=== PATIENT | male | born 1990 | race American Indian/Alaskan Native ===

== ENCOUNTER 2019-02-10 12:56 | Emergency (ER) | payer SELFPAY ==
[2019-02-10 13:10] VITALS: BP 103/58
--- NOTE | 2019-02-10 13:11 | Event Note ---
ED Screening Note Date of service: 02/10/19 Time: 13:09 ED Screening Note: This is a 28 y.o. M. that presents to the ER with right eye pain x 1 week. Reports pain worse with light. Wear contacts This initial assessment/diagnostic orders/clinical plan/treatment(s) is/are subject to change based on patients health status, clinical progression and re- assessment by fellow clinical providers in the ED. Further treatment and workup at subsequent clinical providers discretion. Patient/guardian urged not to elope from the ED as their condition may be serious if not clinically assessed and managed. Initial orders include:
[2019-02-10] MEDS ORDERED: TETRACAINE 0.5% OPHTH SOLN 4ML OU ONE (13:22)
[2019-02-10] MEDS ORDERED: FLUORESCEIN 1 MG STRIP OP ONE (13:22)
--- NOTE | 2019-02-10 13:27 | Emergency Department Report ---
Eye Injury/Foreign Body - HPI Duration: 2 Days Eye Location: Right Severity: Mild Tetanus Status: Up to Date Eye Symptoms: Eye Pain: No, Blurred Vision: No, Eye Redness: Yes, Grinding/Hammering Metal: No, Used Eye Protection: No, Contact Lens Use: Yes, Recalls Injury: No, Photophobia: No Other History: 28 YO MALE COMES TO ER WITH R EYE IRRITATION, SENSTIVE TO LIGHT, AND TEARING. PT THINKS HE GOT A DOG HAIR IN IT. PT WEARS CONTACTS ED Review of Systems ROS: Stated complaint: SCRATCH EYE Other details as noted in HPI Comment: All other systems reviewed and negative ED Past Medical Hx - Past Medical History Previous Medical History?: Yes Hx HIV: Yes - Surgical History Past Surgical History?: No - Family History Family history: no significant - Social History Smoking Status: Never Smoker Substance Use Type: Marijuana - Medications Home Medications: Home Medications Medication Instructions Recorded Confirmed Last Taken Type Tobramycin/Dexamethasone [Tobradex 1 - 2 drop OD Q4HR #1 drops.susp 02/10/19 Unknown Rx Eye Drops 0.3/0.1%] Eye Injury Exam - Exam General: Vital signs noted. No distress. Alert and acting appropriately. ALERT ORIENTED S1S2 LUNGS CTA INC UPTAKE FLUROS. AT 4P OF THE RIGHT CORNEA NO FB CONJUNCTIVA R EYE RED EOMS INTACT GLOBE INTACT POS PHOTOPHOBIA PAIN RELIEVED WITH TETRACAINE ED Course Vital Signs 02/10/19 13:07 Temperature 98.6 F Pulse Rate 91 H Respiratory 18 Rate Blood Pressure 103/58 O2 Sat by Pulse 99 Oximetry ED Medical Decision Making - Medical Decision Making NO FEVER NO RECENT URI STATES THE R EYE STARTED HURTING P PLAYING W HIS DOG POS INC UPTAKE FLURO. R EYE AT 4 OCLOCK NO DISCHARGE/ NO MATTING Vital Signs 02/10/19 13:07 Temperature 98.6 F Pulse Rate 91 H Respiratory 18 Rate Blood Pressure 103/58 O2 Sat by Pulse 99 Oximetry - Differential Diagnosis CORNEAL ABRASION/IRITIS/CONJUNC. Critical care attestation.: If time is entered above; I have spent that time in minutes in the direct care of this critically ill patient, excluding procedure time. ED Disposition Clinical Impression: Corneal abrasion Disposition: DC-01 TO HOME OR SELFCARE Is pt being admited?: No Does the pt Need Aspirin: No Condition: Stable Additional Instructions: FOLLOW UP WITH EYE DOCTOR IF PERSISTS MEDS ORDERED DO NOT RUB EYES THROW YOUR CURRENT CONTACTS AWAY- THEY CAN HARBOR BACTERIA DO NOT WEAR CONTACTS FOR 1 WEEK Prescriptions: Tobramycin/Dexamethasone [Tobradex Eye Drops 0.3/0.1%] 1 - 2 drop OD Q4HR #1 drops.susp Referrals: MANUELA LEARY MD [Staff Physician] - 3-5 Days Time of Disposition: 13:25
== END 2019-02-10 13:47 | disposition home or self-care (01) ==
LOC: ED 12:56
DX: S05.01XA Injury of conjunctiva and corneal abrasion without foreign body, right eye, initial encounter (principal); X58.XXXA Exposure to other specified factors, initial encounter; Y93.89 Activity, other specified; Y92.89 Other specified places as the place of occurrence of the external cause; Y99.8 Other external cause status

== ENCOUNTER 2019-02-19 17:10 | Emergency (ER) | payer SELFPAY ==
--- NOTE | 2019-02-19 18:19 | Event Note ---
ED Screening Note ED Screening Note: states he was here last week PMHx HIV This initial assessment/diagnostic orders/clinical plan/treatment(s) is/are subject to change based on patients health status, clinical progression and re- assessment by fellow clinical providers in the ED. Further treatment and workup at subsequent clinical providers discretion. Patient/guardian urged not to elope from the ED as their condition may be serious if not clinically assessed and managed. Initial orders include:
[2019-02-19 18:20] VITALS: BP 94/54
--- NOTE | 2019-02-19 18:26 | Emergency Department Report ---
ED Eye Problem HPI - General Chief complaint: Eye Problems Stated complaint: RT EYE/MUSCLE PAIN Time Seen by Provider: 02/19/19 18:18 Source: patient Mode of arrival: Ambulatory Limitations: No Limitations - History of Present Illness Initial comments: pt is a 28 yo male who presents to the ED with c/o right eye pain and redness that began a 02/10/19. pt was evaluated in the ED at that time and was diagnosed with a corneal abrasion and given abx eye drops. he states he did not follow up with the eyeglass fitter. he states he has continued to have eye redness and watery eye drainage. he does not report any vision changes. pt states that he also has had occasional muscle spasms at night in the left thigh. he denies any leg swelling or pain in the leg. 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 - Related Data Previous Rx's Medication Instructions Recorded Last Taken Type Tobramycin/Dexamethasone [Tobradex 1 - 2 drop OD Q4HR #1 drops.susp 02/10/19 Unknown Rx Eye Drops 0.3/0.1%] Erythromycin [Erythromycin Ophth 1 applic OD QID 7 Days #1 tube 02/19/19 Unknown Rx Oint] Ketorolac Tromethamine [Acular 1 drop OD QID PRN #1 bottle 02/19/19 Unknown Rx 0.5% Opth Soln] Allergies Allergy/AdvReac Type Severity Reaction Status Date / Time No Known Allergies Allergy Verified 02/19/19 17:12 ED Review of Systems ROS: Stated complaint: RT EYE/MUSCLE PAIN Other details as noted in HPI Comment: All other systems reviewed and negative ED Past Medical Hx - Past Medical History Hx HIV: Yes - Surgical History Past Surgical History?: No - Social History Smoking Status: Current Every Day Smoker Substance Use Type: Alcohol - Medications Home Medications: Home Medications Medication Instructions Recorded Confirmed Last Taken Type Tobramycin/Dexamethasone [Tobradex 1 - 2 drop OD Q4HR #1 drops.susp 02/10/19 Unknown Rx Eye Drops 0.3/0.1%] Erythromycin [Erythromycin Ophth 1 applic OD QID 7 Days #1 tube 02/19/19 Unknown Rx Oint] Ketorolac Tromethamine [Acular 1 drop OD QID PRN #1 bottle 02/19/19 Unknown Rx 0.5% Opth Soln] ED Physical Exam - General Limitations: No Limitations General appearance: alert, in no apparent distress - Head Head exam: Present: atraumatic, normocephalic - Eye Eye exam: Present: PERRL, EOMI, conjunctival injection (right), other (no entrapement ) - ENT ENT exam: Present: mucous membranes moist - Neurological Exam Neurological exam: Present: alert, oriented X3 - Psychiatric Psychiatric exam: Present: normal affect, normal mood - Skin Skin exam: Present: warm, dry, intact ED Course Vital Signs 02/19/19 18:19 Temperature 98.6 F Pulse Rate 93 H Respiratory 16 Rate Blood Pressure 94/54 O2 Sat by Pulse 100 Oximetry ED Medical Decision Making - Medical Decision Making pt is a 28 yo male who presents to the ED with c/o right eye pain and redness that began a 02/10/19. pt was evaluated in the ED at that time and was diagnosed with a corneal abrasion and given abx eye drops. he states he did not follow up with the eyeglass fitter. he states he has continued to have eye redness and watery eye drainage. he does not report any vision changes. pt states that he also has had occasional muscle spasms at night in the left thigh. he denies any leg swelling or pain in the leg. 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 on exam: right conjunctival injection, watery, clear drainage, PERRL, EOMI, no signs of entrapment. Patient given prescription for erythromycin ointment and Toradol eyedrops. discussed the importance of following up with an eyeglass fitter with pt for further examination. advised pt to please use medication as prescribed. wash your hands frequently. follow up with an eyeglass fitter in the next 2-3 days. return to the emergency room for any new or worsening symptoms. pts thigh spasms could be due to restless leg vs muscle spasms. advised pt may take Tylenol or ibuprofen. increase your potassium intake. may use ice pack, heating pad, rest, epsom salt bath. follow up with a primary care doctor if your thigh pain is not improving. Critical care attestation.: If time is entered above; I have spent that time in minutes in the direct care of this critically ill patient, excluding procedure time. ED Disposition Clinical Impression: Corneal abrasion Qualifiers: Encounter type: initial encounter Laterality: right Qualified Code(s): S05.01XA - Injury of conjunctiva and corneal abrasion without foreign body, right eye, initial encounter Muscle spasms of lower extremity Qualifiers: Laterality: left Qualified Code(s): M62.838 - Other muscle spasm Disposition: TO HOME OR SELFCARE Is pt being admited?: No Does the pt Need Aspirin: No Condition: Stable Instructions: Corneal Abrasion (ED), Muscle Spasm (ED) Additional Instructions: please use medication as prescribed. wash your hands frequently. follow up with an eyeglass fitter in the next 2-3 days. return to the emergency room for any new or worsening symptoms. may take Tylenol or ibuprofen. increase your potassium intake. may use ice pack, heating pad, rest, epsom salt bath. follow up with a primary care doctor if your thigh pain is not improving. Prescriptions: Ketorolac Tromethamine [Acular 0.5% Opth Soln] 1 drop OD QID PRN #1 bottle PRN Reason: eye pain Erythromycin [Erythromycin Ophth Oint] 1 applic OD QID 7 Days #1 tube Referrals: MANUELA LEARY MD [Staff Physician] - 2-3 Days JAIRO CARD MD [Staff Physician] - 2-3 Days KARTHIKEYAN GORDON MD [Staff Physician] - 2-3 Days PELON LAINEZ MD [Staff Physician] - 2-3 Days DEBBIE BURKETT MD [Staff Physician] - 2-3 Days [facility] [Provider Group] - 2-3 Days [facility] [Outside] - 2-3 Days Time of Disposition: 18:54 Print Language: NOR[place] KORE[place]
== END 2019-02-19 19:00 | disposition home or self-care (01) ==
LOC: ED 17:10
DX: S05.01XA Injury of conjunctiva and corneal abrasion without foreign body, right eye, initial encounter (principal); M62.838 Other muscle spasm; F17.200 Nicotine dependence, unspecified, uncomplicated; F10.10 Alcohol abuse, uncomplicated; Z21 Asymptomatic human immunodeficiency virus [HIV] infection status; Z79.899 Other long term (current) drug therapy; X58.XXXA Exposure to other specified factors, initial encounter; Y93.89 Activity, other specified; Y92.89 Other specified places as the place of occurrence of the external cause; Y99.9 Unspecified external cause status

== ENCOUNTER 2021-11-27 12:13 | Emergency (ER) | payer SELFPAY ==
[2021-11-27 12:49] VITALS: BP 114/73
[2021-11-27] MEDS ORDERED: KETOROLAC 30 MG/1 ML INJ IV ONE (15:45)
[2021-11-27] MEDS ORDERED: ACETAMINOPHEN 500 MG TAB PO ONE (15:54)
[2021-11-27] MEDS ORDERED: dexAMETHasone 4 MG/ML VIAL IV ONE (15:54)
[2021-11-27 16:34] LABS: Basophils % (Auto) 0.4 % (0.0-1.8); Eosinophils # (Auto) 0.1 K/mm3 (0.0-0.4); Eosinophils % (Auto) 1.8 % (0.0-4.3); Hematocrit 33.6 % (35.5-45.6); Lymphocytes # (Auto) 2.6 K/mm3 (1.2-5.4); Lymphocytes % (Auto) 46.9 % (13.4-35.0); Mean Corpuscular HGB Conc 33 % (32-34); Mean Corpuscular Volume 85 fl (84-94); Monocytes # (Auto) 0.7 K/mm3 (0.0-0.8); Monocytes % (Auto) 13.4 % (0.0-7.3); Platelet Count 307 K/mm3 (140-440); Red Blood Count 3.97 M/mm3 (3.65-5.03); Red Cell Distribution Width 19.8 % (13.2-15.2)
--- NOTE | 2021-11-27 16:34 | XRay Report ---
RIGHT ELBOW 3 VIEWS INDICATION / CLINICAL INFORMATION: R elbow pain/swelling. COMPARISON: None available. FINDINGS: BONES / JOINT(S): No acute fracture or subluxation. Mild proximal ulnar spurring. SOFT TISSUES: Small joint effusion. This is nonspecific but can be seen in the setting of an occult f racture. ADDITIONAL FINDINGS: None. Signer Name: Ahmet Brumfield MD Signed: 11/27/2021 4:29 PM Workstation Name: [id number]
[2021-11-27 16:48] LABS: BUN/Creatinine Ratio 8; Blood Urea Nitrogen 7 mg/dL (9-20); Hemolysis Index 9
[2021-11-27 16:53] LABS: Erythrocyte Sedimentation Rate 81 mm/Hr (0-20)
--- NOTE | 2021-11-27 22:34 | Emergency Department Report ---
HPI - General Chief Complaint: Extremity Injury, Upper PUI?: No Time Seen by Provider: 11/27/21 15:44 - HPI HPI: 31-year-old male with a history of HIV, CD4 count unknown, presents for evaluation of what he states is 3 to 4 days of atraumatic right elbow pain. 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 No tingling numbness in his arms or legs. No IV drug abuse. No history of surgeries to his right elbow. Patient states he took ibuprofen 1 day ago. Pain is constant throbbing and nonradiating. Pain currently 8 out of 10. ED Past Medical Hx - Past Medical History Hx HIV: Yes - Social History Smoking Status: Current Every Day Smoker Substance Use Type: Alcohol - Medications Home Medications: Home Medications Medication Instructions Recorded Confirmed Last Taken Type Tobramycin/Dexamethasone [Tobradex 1 - 2 drop OD Q4HR #1 drops.susp 02/10/19 Unknown Rx Eye Drops 0.3/0.1%] Erythromycin [Erythromycin Ophth 1 applic OD QID 7 Days #1 tube 02/19/19 Unknown Rx Oint] Ketorolac Tromethamine [Acular 1 drop OD QID PRN #1 bottle 02/19/19 Unknown Rx 0.5% Opth Soln] Ibuprofen [Motrin 800 MG tab] 800 mg PO Q8HR PRN 7 Days #21 11/27/21 Unknown Rx tablet methylPREDNISolone [Medrol 4MG 4 mg PO DAILY 6 Days #21 11/27/21 Unknown Rx DOSEPAK (21 tabs)] ED Review of Systems ROS: Stated complaint: ELBOW PAIN Other details as noted in HPI Comment: All other systems reviewed and negative Physical Exam - Physical Exam Vital Signs: Vital Signs 11/27/21 12:45 Temperature 98.3 F Pulse Rate 82 Respiratory 16 Rate Blood Pressure 114/73 O2 Sat by Pulse 100 Oximetry General: Gen: pt is well appearing, no acute distress, typing on personal cellular telephone, comfortable appearing, no acute distress HEENT: Normocephalic atraumatic pupils equally round and reactive to light extraocular muscles intact sclera anicteric Neck: Full range of motion, no midline spinal tenderness palpation, no JVD, no carotid bruits, no nuchal rigidity CVS: S1-S2 regular rate and rhythm with no gallops rubs or murmurs, chest wall nontender Pulmonary: Clear to auscultation bilaterally, no wheezes rales or rhonchi Abdomen: Soft nondistended nontender no guarding or rebound tenderness, no palpable deformities or step-offs, normal active bowel sounds, no hepatosplenomegaly, no pulsatile masses : Deferred Extremities: No cyanosis no clubbing no edema, intact distal peripheral pulses, mild warmth and nonpalpable edema to patient's right elbow, patient has full range of motion of right elbow, no palpable deformities or step-offs, no pal pable tense palpation, no erythema, no puncture or traumatic wounds, compartments of bilateral EXTR upper extremities are symmetric, less than 2- second capillary refill in fingers of both hands, intact brachial and radial pulses in both upper extremities, no bony tenderness palpation or soft tissue tenderness palpation of right upper extremity or left upper extremity Integumentary: Skin normal, no petechia no purpura no abscess no lacerations no evidence of trauma no evidence of infection Neuro: Patient is awake alert and oriented to person place time situation, mentating well, cranial nerves II through XII intact, no focal neurodeficits, sensation grossly tact Psych: Calm cooperative, mood affect normal ED Course Vital Signs 11/27/21 12:45 Temperature 98.3 F Pulse Rate 82 Respiratory 16 Rate Blood Pressure 114/73 O2 Sat by Pulse 100 Oximetry ED Medical Decision Making - Lab Data Result diagrams: 11/27/21 16:13 11/27/21 16:13 - Radiology Data Radiology results: report reviewed - Medical Decision Making 31-year-old male with a history of HIV, currently unknown CD4 count per patient' s report, presents for evaluation of atraumatic right elbow pain x3 to 4 days. Vital signs stable. Patient is hemodynamically stable and neurovascular intact. CBC and BMP grossly unremarkable. Sed rate is elevated. X-ray results reviewed. Per staff report, patient walked out prior to final reassessment and receiving his discharge paperwork. Patient eloped. Critical care attestation.: If time is entered above; I have spent that time in minutes in the direct care o f this critically ill patient, excluding procedure time. ED Disposition Clinical Impression: Elbow pain, right Disposition: 07 LEFT AWOL/ELOPED Is pt being admited?: No Does the pt Need Aspirin: No Condition: Stable Additional Instructions: Please take ibuprofen 800mg by mouth every 8 hours as needed for pain. Take alternating dosages of acetaminophen as needed for additional pain management. Take steroids daily as prescribed. Please observe your symptoms very carefully. Return to the nearest emergency department as soon as possible if you develop severe worsening pain, spreading redness, inability to extend or bend your elbow, any fever of 100.4 Fahrenheit or higher, or if any other new worrisome symptoms develop Prescriptions: methylPREDNISolone [Medrol 4MG DOSEPAK (21 tabs)] 4 mg PO DAILY 6 Days #21 Ibuprofen [Motrin 800 MG tab] 800 mg PO Q8HR PRN 7 Days #21 tablet PRN Reason: Pain, Moderate (4-6) Referrals: PRIMARY MD NEVA [Primary Care Provider] - 3-5 Days EDNA SHAH MD [Staff Physician] - 3-5 Days
== END 2021-11-28 03:28 | disposition left against medical advice (07) ==
LOC: ED 12:13
DX: M25.521 Pain in right elbow (principal); F17.200 Nicotine dependence, unspecified, uncomplicated; F10.20 Alcohol dependence, uncomplicated
CPT/HCPCS: 36415; 73080; 80048; 85025; 85652; 96374; 96375; 99283; J1100; J1885